=== PATIENT | female | born 1990 | race Caucasian/White ===

== ENCOUNTER 2019-02-24 09:56 | Inpatient (IN) | payer BC ==
[2019-02-24] MEDS ORDERED: Sodium Chloride 0.9% 100 ML ONE (10:41)
[2019-02-24] MEDS ORDERED: Misoprostol 100 MCG TAB ONE (10:41)
[2019-02-24] MEDS ORDERED: Penicillin G Potassium 5 MILL.UNITS VIAL ONE (10:41)
[2019-02-24 11:02] VITALS: BMI 42.3
[2019-02-24] MEDS ORDERED: Acetaminophen 500 MG TAB PO PRN ×2 (11:06→14:00)
[2019-02-24] MEDS ORDERED: Misoprostol 200 MCG TAB PR PRN (11:06)
[2019-02-24] MEDS ORDERED: HYDROcodone/Acetaminophen 5/325 mg Tablet PO PRN (11:06)
[2019-02-24] MEDS ORDERED: Lidocaine 1% (PF) 30 ML VIAL SC PRN (11:06)
[2019-02-24] MEDS ORDERED: Promethazine HCl 25 MG/ML VIAL IM PRN ×2 (11:06→17:32)
[2019-02-24] MEDS ORDERED: Ibuprofen 800 MG TAB PO PRN (11:06)
[2019-02-24] MEDS ORDERED: Butorphanol Tartrate 1 MG/ML VIAL SLOW IVP PRN (11:06)
[2019-02-24] MEDS ORDERED: Ondansetron PF 4 MG/2 ML Vial IVP PRN ×2 (11:06→17:32)
[2019-02-24] MEDS ORDERED: NS / Oxytocin 40 units/1000ml 1,000 ML IV PRN (11:06)
[2019-02-24] MEDS ORDERED: Misoprostol 100 MCG TAB VAG SCH (11:15)
[2019-02-24] MEDS ORDERED: NS w/ Oxytocin 10 units 500 ML IV SCH (11:15)
[2019-02-24] MEDS ORDERED: Penicillin G Potassium 5 MILL.UNITS in Sodium Chloride 0.9% 100 ML IVPB SCH (11:15)
[2019-02-24 12:37] LABS: Mean Corpuscular HGB CONC 34.7 g/dL (32.0-36.0); Mean Corpuscular Hemoglobin 32.4 pg (27.0-31.0); Mean Corpuscular Volume 93.4 fL (78.0-98.0); Mean Platelet Volume 8.6 fL (7.4-10.4); Platelet Count 207 thou/uL (130-400); RBC Distribution Width 12.5 % (11.5-14.5); Red Blood Cell (RBC) Count 4.32 mill/uL (4.20-5.40); White Blood Cell (WBC) Count 16.1 thou/uL (4.8-10.8)
[2019-02-24 13:15] LABS: HBSAg Index 0.32 S/CO (0-0.99); Hep B Surf Ag Non-Reactive S/CO (NonReactive); Syphilis Antibody Nonreactive (Nonreactive); Syphilis Antibody Index 0.04 S/CO (<1.00 Non-Reactive)
[2019-02-24] MEDS ORDERED: Acetaminophen 500 MG TAB PO SCH (14:00)
[2019-02-24] MEDS: Lactated Ringer's 1,000 ML IV SCH (14:06)
[2019-02-24] MEDS ORDERED: hydrALAZINE 20 MG/ML VIAL ONE (14:38)
[2019-02-24] MEDS ORDERED: hydrALAZINE 20 MG/ML VIAL SLOW IVP PRN (15:38)
[2019-02-24] MEDS ORDERED: Magnesium Sulfate 20 gm/500 ml 20 GM/500 ML BAG ONE ×2 (15:45→23:50)
[2019-02-24] MEDS ORDERED: Fentanyl 4 mcg/Bup 0.1% Cadd 100 ML ONE ×2 (16:15→23:51)
[2019-02-24] MEDS ORDERED: Calcium Gluc 4.6 MEQ/10 ML (100 MG/ML) SLOW IVP PRN (16:21)
[2019-02-24] MEDS ORDERED: Magnesium Sulfate 20 GM/WATER 500 ML BAG IVPB SCH (16:30)
[2019-02-24] MEDS ORDERED: Acetaminophen 325 MG TAB PO PRN (17:32)
[2019-02-24] MEDS ORDERED: Naloxone HCl 0.4 mg/ml Vial IVP PRN ×2 (17:32)
[2019-02-24] MEDS ORDERED: Lactated Ringer's 500 ML IV PRN (17:32)
[2019-02-24] MEDS ORDERED: ePHEDrine/0.9% NaCl/PF SYRINGE 50 mg/10 ml SLOW IVP PRN (17:32)
[2019-02-24] MEDS ORDERED: Eucerin (Mineral Oil/Petrolatum,White) 30 gm Jar TOP PRN (17:32)
[2019-02-24] MEDS ORDERED: diphenhydrAMINE 50 MG/ML VIAL IVP PRN (17:32)
[2019-02-24] MEDS: Penicillin G 2.5 MILL.units 2.5 MILL.UNITS in Premix Bag 1 BAG IVPB SCH ×2 (17:35→21:40)
[2019-02-24] MEDS ORDERED: Communication Order-Pharmacy FS SCH (17:45)
[2019-02-24] MEDS: Fentanyl 4 mcg/Bupivacaine 0.1% Cassette 100 ML EPIDURAL SCH (23:55)
[2019-02-24] MEDS: Magnesium Sulfate 20 gm/500 ml 20 GM/500 ML BAG IVPB SCH (23:55)
[2019-02-25] MEDS: Penicillin G 2.5 MILL.units 2.5 MILL.UNITS in Premix Bag 1 BAG IVPB SCH ×2 (02:00→06:35)
[2019-02-25] MEDS: Fentanyl 4 mcg/Bupivacaine 0.1% Cassette 100 ML EPIDURAL SCH (07:05)
[2019-02-25] MEDS ORDERED: Fentanyl 4 mcg/Bup 0.1% Cadd 100 ML ONE (07:07)
--- NOTE | 2019-02-25 07:51 | PDOC.LDPN ---
Labor & Delivery Progress Note - Subjective Subjective: comfortable - Objective Uterine fundus: palpable contractions SVE: 8 Effacement: 75% Station: -1 FHT: category 1 AROM: clear fluid IUPC placed: yes - Assessment (1) Gestational hypertension Code(s): O13.9 - GESTATIONAL HTN W/O SIGNIFICANT PROTEINURIA, UNSP TRIMESTER Current Visit: Yes Status: Acute (2) Failure to progress in first stage of labor Code(s): OMN6882 - Current Visit: Yes Status: Acute
[2019-02-25] MEDS ORDERED: CEFAZOLIN 2 GM in Premix Bag 1 BAG IVPB SCH (08:45)
[2019-02-25] MEDS ORDERED: Bicitra 30 ML UDCUP PO SCH (09:00)
[2019-02-25] MEDS ORDERED: HYDROcodone/Acetaminophen 5/325 mg Tablet PO PRN ×2 (09:23→11:16)
[2019-02-25] MEDS ORDERED: Lidocaine PF 1% 10 MG/ML ML IJ ONE (09:43)
[2019-02-25] MEDS ORDERED: ePHEDrine/0.9% NaCl/PF SYRINGE 50 mg/10 ml ONE ×2 (09:53→11:11)
[2019-02-25] MEDS ORDERED: Oxytocin 10 UNITS/ML VIAL ONE (09:53)
[2019-02-25] MEDS ORDERED: Fentanyl 100 MCG/2 ML VIAL ONE (09:53)
[2019-02-25] MEDS ORDERED: PHENYLEPHRINE-NS 100 MCG/ML 10 ML SYRINGE ONE ×2 (09:54→17:21)
[2019-02-25] MEDS ORDERED: Ketorolac Tromethamine 30 MG/ML VIAL ONE ×2 (09:54→17:21)
[2019-02-25] MEDS ORDERED: Ondansetron PF 4 MG/2 ML Vial ONE ×3 (09:54→17:21)
[2019-02-25 10:47] LABS: Base Excess (BEa) -5.2 mEq/L (-2.0 to +3.0)
[2019-02-25] MEDS ORDERED: Dexamethasone 4 mg/ml Vial ONE (10:51)
[2019-02-25] MEDS ORDERED: PROPOFOL 200 MG/20 ML VIAL ONE ×2 (11:11→17:21)
[2019-02-25] MEDS ORDERED: Succinylcholine Chloride 200 MG/10 ML VIAL ONE (11:11)
[2019-02-25] MEDS ORDERED: Labetalol HCl 100 MG/20 ML VIAL ONE (11:11)
[2019-02-25] MEDS ORDERED: Bisacodyl 10 MG SUPP PR PRN (11:16)
[2019-02-25] MEDS ORDERED: Simethicone Chewable 80 MG TAB PO PRN (11:16)
[2019-02-25] MEDS ORDERED: diphenhydrAMINE 25 MG CAP PO PRN ×2 (11:16→15:57)
[2019-02-25] MEDS ORDERED: Lanolin Ointment 7 GM TUBE TOP PRN (11:16)
[2019-02-25] MEDS ORDERED: Naloxone HCl 0.4 mg/ml Vial IV PRN ×2 (11:33→15:57)
[2019-02-25] MEDS ORDERED: Naloxone HCl 0.4 mg/ml Vial IVP PRN ×2 (11:33)
[2019-02-25] MEDS ORDERED: HYDROmorphone 2 MG/ML VIAL SLOW IVP PRN (11:33)
[2019-02-25] MEDS ORDERED: Promethazine HCl 25 MG/ML VIAL IM PRN ×2 (11:33→15:57)
[2019-02-25] MEDS ORDERED: diphenhydrAMINE 50 MG/ML VIAL IVP PRN (11:33)
[2019-02-25] MEDS ORDERED: Eucerin (Mineral Oil/Petrolatum,White) 30 gm Jar TOP PRN (11:33)
[2019-02-25] MEDS ORDERED: Meperidine HCl/PF 25 MG/ML VIAL SLOW IVP PRN (11:33)
[2019-02-25] MEDS ORDERED: Ondansetron HCl/PF 4 MG/2 ML Vial IVP PRN (11:33)
[2019-02-25] MEDS ORDERED: L&D-Morphine 4 MG/ML VIAL SLOW IVP PRN (11:33)
[2019-02-25] MEDS ORDERED: Communication Order-Pharmacy FS SCH (11:45)
--- NOTE | 2019-02-25 12:05 | OP ---
DATE OF PROCEDURE: 02/25/2019 PREOPERATIVE DIAGNOSES: 1. A 28-year-old white female, G2, P0, A1, at 40 weeks gestation, status post labor induction with gestational hypertension. 2. Failure to progress past 3 cm. POSTOPERATIVE DIAGNOSES: 1. A 28-year-old white female, G2, P0, A1, at 40 weeks gestation, status post labor induction with gestational hypertension. 2. Failure to progress past 3 cm. 3. 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 PROCEDURES PERFORMED: Primary low transverse section with exploratory laparotomy. CHANNEL DEVELOPMENT DIRECTOR SURGEON: Kang Davis MD ANESTHESIA: Epidural converted to general endotracheal for adequate anesthetic coverage for the surgery. ESTIMATED BLOOD LOSS: 750ml.. FINDINGS: 1. Vigorous female infant, weight 6 pounds 1 ounce. Apgars 8 and 9. Vertex presentation. 2. Normal-appearing right fallopian tube and ovary. 3. Uterus noted to be somewhat bottle neck shape with uterine fibers very palpable on the right portion of the uterus, uterine body, and somewhat atrophic, more on the left side of the right unicornuate uterus. 4. Appeared to be a vestigial remnant of the left uterine horn with no identifiable fallopian tube or normal-appearing ovarian tissue. 5. Right kidney palpable on exploratory laparotomy. 6. 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 COUNTS: Counts were correct x2. DISPOSITION: Plans disposition to recovery room, then continue magnesium sulfate in LICU for gestational hypertension. Order renal ultrasound for suspected absent left kidney. DESCRIPTION OF PROCEDURE: The patient previously received informed consent in regard to surgery. She was taken back to the operating room, where she received a dosing of her epidural. She had been was then prepped and draped in usual sterile fashion. Powell catheter and SCDs were in place. We proceeded to carry out the surgical procedure. A Pfannenstiel incision was made in the lower abdomen was carried down the fascia. Fascia was nicked in the midline. Fascial incision was extended with Begum scissors. The patient did experience some significant pain and discomfort when we tried to dissect the rectus fascia off the rectus muscle bellies and therefore, the patient had to undergo general endotracheal anesthesia. Once this was secured, then we proceeded to carry out the surgery. The rectus fascia was dissected superiorly and inferiorly off the rectus muscle bellies. The rectus muscle bellies were divided in the midline. Peritoneal cavity was entered. The peritoneal incision was extended. Bladder blade was placed. Usual bladder flap was created. We then made a 2 cm hysterotomy incision in lower uterine segment. The baby was delivered in the vertex presentation. The mouth and nares of the were bulb suctioned on the abdomen. The cord was doubly clamped and cut and the baby was handed to the pediatric team in attendance. Cord blood was obtained along with an cord ABG. The placenta was then manually extracted and then on examination of the uterus, the uterus appeared more about a water bottle shaped and had some acne more on the medial portion of the uterus with normal striations of the smooth muscle of the lateral half of the uterus, where the right fallopian tube and ovary were located. On further inspection, there was noted to be absence of the left fallopian tube and ovary. Once the placenta had been extracted, the uterine cavity was curetted of any remaining placental fragments and the hysterotomy incision was closed in a running locking suture with #1 Monocryl suture. Hemostasis was confirmed. After the hysterotomy incision had been secured, we further explored the patient's abdomen. There was no identifiable left fallopian tube or significant left ovarian tissue noted. This was traced all the way back to the pelvic sidewall, where we felt the infundibulopelvic ligament would be originating. There appeared to be approximately a 3.5 to 4 cm longitudinal and 2.5 cm width vestigial remnant of what we presumed to be a left uterine horn. The abdomen was further explored and a palpable right kidney was noted in the retroperitoneal space and there was no palpable left kidney where we would propose this to be on the left retroperitoneal space. The uterus had been returned into the abdomen, again the hemostasis in the pelvis was confirmed after irrigation. The rectus muscle bellies were then inspected and noted to be hemostatic. The rectus fascia was then closed with a running continuous 0 PDS suture x2. Subcutaneous tissue was irrigated and noted to be hemostatic and 2-0 plain gut running suture was placed for approximation of the subcutaneous tissue. A subcuticular stitch of 4-0 Monocryl was then placed in the skin and Dermabond was applied. The patient was then awakened from her anesthesia and transferred to recovery room in stable condition. Job ID: [id number] [facility]
[2019-02-25] MEDS ORDERED: Morphine 4 MG/ML VIAL ONE ×3 (12:33→15:50)
[2019-02-25] MEDS: Morphine 4 MG/ML VIAL IV SCH ×2 (12:44→15:57)
--- NOTE | 2019-02-25 15:13 | ULT ---
COMPLETE BILATERAL RENAL ULTRASOUND: HISTORY: Suspected absent left kidney. FINDINGS: The right kidney measures 15.1 x 6.8 x 6.3 cm. No renal hydronephrosis or perinephric process. A le ft kidney was not demonstrated within the normal expected location. The bladder was not able to be i dentified because of bandage material. IMPRESSION: 1. Nonvisualized left kidney. 2. Unremarkable appearing right kidney without hydronephrosis. POS: [facility]
[2019-02-25] MEDS ORDERED: Ondansetron PF 4 MG/2 ML Vial IVP PRN (15:57)
[2019-02-25] MEDS ORDERED: fentaNYL Citrate/PF 2,000 MCG in Sodium Chloride 0.9% 60 ML IV PRN (15:57)
[2019-02-25] MEDS ORDERED: diphenhydrAMINE 50 MG/ML VIAL IM/IV PRN (15:57)
[2019-02-25] MEDS ORDERED: Zolpidem Tartrate 5 MG TAB PO PRN (15:57)
[2019-02-25] MEDS ORDERED: Bupivacaine 0.25% HCL 30 ML VIAL ONE (17:00)
[2019-02-25] MEDS ORDERED: Lidocaine 2% PF 5 ML VIAL ONE (17:21)
[2019-02-25] MEDS ORDERED: Succinylcholine Chloride 20 MG/ML 10 ml SYRINGE FS ONE (17:21)
[2019-02-25] MEDS: Magnesium Sulfate 20 gm/500 ml 20 GM/500 ML BAG IVPB SCH (23:35)
--- NOTE | 2019-02-26 00:10 | PDOC.PP ---
Post Progress Note Post Day #: POD#1 Subjective: Resting in L&D. Has had no c/o. PO intake tolerated: yes Flatus: no Ambulation: no Weight Weight 101.605 kg - Physical Examination General: NAD Respiratory: non-labored breathing Abdominal: no distention Skin: CS incision dry & intact Result Diagrams: 02/24/19 12:26 02/24/19 12:28 Additional Labs: Post Labs Blood Type O POSITIVE 02/24/19 12:46 Hep Bs Antigen Non-Reactive S/CO (NonReactive) 02/24/19 12:26 - Assessment/Plan Doing well s/p C/S. BPs reassuring; PIH resolving. Routine postop care. Cont. Mg x 24 hrs delivered.
[2019-02-26] MEDS: Ibuprofen 800 MG TAB PO SCH ×3 (07:01→22:06)
[2019-02-26] MEDS: Docusate Calcium (SURFAK) 240 MG CAP PO SCH ×3 (07:02→22:06)
[2019-02-26] MEDS: Ferrous Sulfate 325 MG TAB PO SCH ×2 (07:02→14:37)
[2019-02-26 08:18] LABS: Hemoglobin 11.5 g/dL (12.0-16.0); Mean Corpuscular HGB CONC 34.9 g/dL (32.0-36.0); Mean Corpuscular Hemoglobin 32.7 pg (27.0-31.0); Mean Corpuscular Volume 93.6 fL (78.0-98.0); Platelet Count 196 thou/uL (130-400); RBC Distribution Width 12.8 % (11.5-14.5); Red Blood Cell (RBC) Count 3.52 mill/uL (4.20-5.40); White Blood Cell (WBC) Count 18.4 thou/uL (4.8-10.8)
[2019-02-26] MEDS ORDERED: Prenatal Vitamin 1 TAB PO SCH (09:00)
[2019-02-26] MEDS ORDERED: Adacel (T-DAP) 0.5 ML SYRINGE IM ONE (09:00)
--- NOTE | 2019-02-26 11:06 | PDOC.EVN ---
Event Note - Event Note Event Note: Pt 24hrs post mag for preeclampsia. BP normal to mild since delivery. She is diuresing now with 3-400cc/hr last several hours. Will transfer to post .
[2019-02-26] MEDS ORDERED: Lanolin Ointment 7 GM TUBE TOP PRN (11:20)
[2019-02-26] MEDS ORDERED: Ondansetron PF 4 MG/2 ML Vial IVP PRN (11:20)
[2019-02-26] MEDS ORDERED: HYDROcodone/Acetaminophen 5/325 mg Tablet PO PRN (11:40)
[2019-02-26] MEDS: Penicillin G 2.5 MILL.units 2.5 MILL.UNITS in Premix Bag 1 BAG IVPB SCH ×2 (14:34→14:36)
[2019-02-26] MEDS: Lactated Ringer's 1,000 ML IV SCH ×2 (14:35→14:38)
[2019-02-26] MEDS: HYDROcodone/Acetaminophen 5/325 mg Tablet PO PRN ×2 (18:24→22:10)
[2019-02-26] MEDS: Simethicone Chewable 80 MG TAB PO PRN (22:06)
[2019-02-27] MEDS: Ibuprofen 800 MG TAB PO SCH ×3 (05:08→21:12)
[2019-02-27 06:41] LABS: Hemoglobin 9.8 g/dL (12.0-16.0); Mean Corpuscular HGB CONC 34.3 g/dL (32.0-36.0); Mean Corpuscular Hemoglobin 32.9 pg (27.0-31.0); Mean Corpuscular Volume 95.8 fL (78.0-98.0); Mean Platelet Volume 7.4 fL (7.4-10.4); Platelet Count 176 thou/uL (130-400); RBC Distribution Width 12.7 % (11.5-14.5); Red Blood Cell (RBC) Count 2.99 mill/uL (4.20-5.40); White Blood Cell (WBC) Count 16.1 thou/uL (4.8-10.8)
--- NOTE | 2019-02-27 07:55 | PRG ---
DATE OF SERVICE: 02/27/2019 SUBJECTIVE: The patient is a 28-year-old female post op day 2, status post a primary for failure to progress and PIH with severe features. For complete details, please refer to the operative note. The patient was subsequently placed on magnesium for 24 hours prophylaxis and then transferred to the floor for continued postoperative care. The patient is now postop day 2. She reports that she is feeling much better today. Reports decreased lochia, tolerating p.o., voiding on her own. She reports having a bowel movement. The patient is having good pain control. OBJECTIVE: VITAL SIGNS: Blood pressure this morning 130/63, temperature 98.2, pulse is 79, respiratory rate of 16. GENERAL: She appears to be in no acute distress. She is alert, oriented, cooperative, and pleasant to interact with. HEENT: Head is normocephalic and atraumatic. ABDOMEN: Incision is clean, dry, and intact. Fundus is firm. EXTREMITIES: Nontender, nonedematous. ASSESSMENT AND PLAN: The patient is a 28-year-old female, postoperative day 2, status post primary section for failure to progress, complicated by PIH with severe features. She is now status post magnesium. We will continue in-house care with anticipation of discharge tomorrow. Job ID: [id number]
[2019-02-27] MEDS: HYDROcodone/Acetaminophen 5/325 mg Tablet PO PRN ×3 (08:21→23:29)
[2019-02-27] MEDS: Docusate Calcium (SURFAK) 240 MG CAP PO SCH ×2 (09:40→21:11)
[2019-02-27] MEDS: Prenatal Vitamin 1 TAB PO SCH (09:40)
[2019-02-27] MEDS: Simethicone Chewable 80 MG TAB PO PRN (21:11)
[2019-02-28] MEDS: HYDROcodone/Acetaminophen 5/325 mg Tablet PO PRN ×4 (04:07→15:29)
[2019-02-28] MEDS: Ibuprofen 800 MG TAB PO SCH ×2 (04:54→13:37)
--- NOTE | 2019-02-28 08:08 | PDOC.PP ---
Post Progress Note Post Day #: 3 Subjective: Tolerating diet. Ambulating. Voiding. baby doing well. Vital Signs (12 hours) Temp Pulse Resp BP 02/28/19 04:20 98.5 F 02/27/19 23:30 99.1 F 94 16 116/72 02/27/19 21:10 99.3 F 92 16 120/62 Weight Weight 224 lb - Physical Examination Abdominal: + bowel sounds, lochia, no distention, appropriately TTP Result Diagrams: 02/27/19 05:58 02/24/19 12:28 Additional Labs: Post Labs Blood Type O POSITIVE 02/24/19 12:46 Hep Bs Antigen Non-Reactive S/CO (NonReactive) 02/24/19 12:26 (1) Gestational hypertension Code(s): O13.9 - GESTATIONAL HTN W/O SIGNIFICANT PROTEINURIA, UNSP TRIMESTER Status: Acute (2) Failure to progress in first stage of labor Code(s): [id number] - Status: Acute - Assessment/Plan Post op day # 3. Blood pressure normalized. Unicornuate uterus noted with absent left kidney...Doing well. D/c home today..6 weeks follow up. Patient will be moving to [place] and will find doctor there. also recommend seeing cook helper pastry in the future due to one kidney...
[2019-02-28] MEDS: Prenatal Vitamin 1 TAB PO SCH (08:22)
[2019-02-28] MEDS: Docusate Calcium (SURFAK) 240 MG CAP PO SCH (08:23)
[2019-02-28 10:23] VITALS: BP 121/78; TEMP 98.7
[2019-02-28] MEDS ORDERED: Measles/Mumps/Rubella 10 MCG/0.5 ML VIAL SC ONE (11:15)
== END 2019-02-28 16:00 | disposition home or self-care (01) | DRG 787 ==
LOC: L&D 09:56 → 3SW 02-26 13:03
PROVIDERS: ADMIT Obstetrics & Gynecology; ATTEND Obstetrics & Gynecology
PROC: 10D00Z1 Extraction of Products of Conception, Low, Open Approach (ICD-10-PCS; principal; 2019-02-25)
DX: O13.4 Gestational [pregnancy-induced] hypertension without significant proteinuria, complicating childbirth (principal); Q60.0 Renal agenesis, unilateral; O62.0 Primary inadequate contractions; O34.593 Maternal care for other abnormalities of gravid uterus, third trimester; Q51.4 Unicornate uterus; O99.89 Other specified diseases and conditions complicating pregnancy, childbirth and the puerperium; O14.94 Unspecified pre-eclampsia, complicating childbirth; Z3A.40 40 weeks gestation of pregnancy; Z37.0 Single live birth
CPT/HCPCS: 36415; 51702; 76770; 82565; 82805; 84156; 84450; 85027; 86780; 86850; 86900; 86901; 87340; 90707; J0330; J0360; J0595; J0690; J1100; J1885; J2001; J2270; J2405; J2540; J2590; J2704; J3010; J3475; J3490; S0020